=== PATIENT | female | born 1965 | race African-American/Black ===

== ENCOUNTER 2018-07-04 09:22 | Outpatient (CLI) | payer BC ==
--- NOTE | 2018-07-04 09:45 | RAD ---
TWO VIEW CHEST: History: Dyspnea. Comparison: 05-10-15 FINDINGS: Lung feliciano are clear. No infiltrate. Vascular markings are normal. Heart size is within normal range . Osseous structures are unremarkable with mild degenerative changes in the spine. IMPRESSION: No acute process. No significant interval change. POS: BEL
== END 2018-07-04 09:23 | disposition home or self-care (01) ==
LOC: RAD 09:22
PROVIDERS: ATTEND Internal Medicine Critical Care Medicine
DX: R06.00 Dyspnea, unspecified (principal)
CPT/HCPCS: 71046

== ENCOUNTER 2023-07-10 09:13 | Outpatient (CLI) | payer BC | END 2023-07-10 09:14 | disposition home or self-care (01) | LOC: BICULT 09:13 | PROVIDERS: ATTEND Nurse Practitioner Family | DX: R22.32 Localized swelling, mass and lump, left upper limb (principal) | CPT/HCPCS: 76999 ==

== ENCOUNTER 2023-08-03 08:30 | Outpatient (CLI) | payer BC ==
[2023-08-03] MEDS ORDERED: Iopamidol-370 76% 500 ML MDV (1 ML CHARGE) ONE (11:29)
== END 2023-08-03 08:31 | disposition home or self-care (01) ==
LOC: BICCT 08:30
PROVIDERS: ATTEND Surgery
DX: M79.622 Pain in left upper arm (principal)
CPT/HCPCS: 71260; 82565; Q9967

== ENCOUNTER 2024-01-16 10:31 | Outpatient (CLI) | payer BC | END 2024-01-16 10:32 | disposition home or self-care (01) | LOC: RAD 10:31 | PROVIDERS: ATTEND Internal Medicine Critical Care Medicine | DX: R06.00 Dyspnea, unspecified (principal) | CPT/HCPCS: 71046 ==